=== PATIENT | male | born 1975 | race Caucasian/White ===

== ENCOUNTER 2021-08-12 00:28 | Emergency (ER) | payer OTHER ==
[~2021-08-12] VITALS: Ht 185.4 cm; Wt 81.6 kg
[2021-08-12] MEDS ORDERED: HYDROCODONE/APAP 5/325MG TABLET PO ONE (01:00)
[2021-08-12] MEDS ORDERED: HYDROCODONE/APAP 5/325MG TABLET ONE (01:22)
[2021-08-12 02:11] VITALS: BP 135/98
== END 2021-08-12 02:11 | disposition home or self-care (01) ==
LOC: ER 00:33
DX: S13.4XXA Sprain of ligaments of cervical spine, initial encounter (principal); S60.042A Contusion of left ring finger without damage to nail, initial encounter; S20.211A Contusion of right front wall of thorax, initial encounter; V49.9XXA Car occupant (driver) (passenger) injured in unspecified traffic accident, initial encounter; Y93.89 Activity, other specified; Y92.89 Other specified places as the place of occurrence of the external cause; Y99.8 Other external cause status
CPT/HCPCS: 71045-TC; 72125-TC; 73130-TC

== ENCOUNTER 2024-08-18 01:30 | Emergency (ER) | payer MEDICAID, OTHER ==
[~2024-08-18] VITALS: Ht 185.4 cm; Wt 86.2 kg
[2024-08-18] MEDS ORDERED: KETOROLAC TROMETHAMINE INJ 30 MG/ML VIAL ONE (02:37)
[2024-08-18] MEDS: KETOROLAC TROMETHAMINE INJ 30 MG/ML VIAL IM ONE (02:39)
[2024-08-18] MEDS ORDERED: KETO10TA2 PO (05:10)
[2024-08-18 05:36] VITALS: BP 130/75; TEMP 98; O2SAT 98
== END 2024-08-18 05:37 | disposition home or self-care (01) ==
LOC: ER 01:32
DX: S99.812A Other specified injuries of left ankle, initial encounter (principal); F12.90 Cannabis use, unspecified, uncomplicated; X58.XXXA Exposure to other specified factors, initial encounter; Y93.89 Activity, other specified; Y92.89 Other specified places as the place of occurrence of the external cause; Y99.8 Other external cause status
CPT/HCPCS: 99285; 93971; 96372; 73610; 73630; J1885